=== PATIENT | male | born 1990 | race Caucasian/White ===

== ENCOUNTER 2021-09-07 13:58 | Emergency (ER) | payer OTHER, SELFPAY ==
--- NOTE | ~2021-09-07 | XR_ITS ---
EXAMINATION: XR chest 2V DATE: 09/07/2021 15:20 INDICATION: Chest pain TECHNIQUE: AP and lateral views of the chest are obtained. COMPARISON: None available FINDINGS: The lungs are free of acute opacities. Calcified pulmonary nodules are consistent with old granulomatous disease. There is no pleural effusion or pneumothorax. The cardiomediastinal silhouette is normal. The visualized bones and soft tissues are unremarkable. IMPRESSION: 1. No acute cardiopulmonary abnormality. Reviewed, dictated and finalized at location A.
[2021-09-07 14:04] VITALS: BP 136/73; PULSE 114; RESP 18; TEMP 36.4; O2SAT 99
--- NOTE | 2021-09-07 14:06 | ECG_ITS ---
Measurements Intervals [place] Rate: 104 P: 74 [place]: 145 QRS: 68 QRSD: 106 T: 52 QT: 335 QTc: 442 Interpretive Statements SINUS TACHYCARDIA POSSIBLE LEFT ATRIAL ENLARGEMENT INCOMPLETE RIGHT BUNDLE BRANCH BLOCK BORDERLINE ECG Electronically Signed On 09-07-2021 14:48:55 CDT by Ramone Alfaro D.O.
[2021-09-07 14:13] VITALS: PULSE 101
--- NOTE | 2021-09-07 14:31 | ED.CHESTPAIN ---
HPI - Chest Pain General Chief Complaint: Chest Pain Stated Complaint: chest pain Time Seen by Provider: 09/07/21 14:01 Source: patient History of Present Illness HPI narrative: Patient presents with chest pain. Patient ports he has had constant chest pain for 3 days. Says sometimes radiates to his left arm. He describes it as a achy sensation no clear modifying or alleviating factors. He occasionally has association with shortness of breath. Denies any lightheadedness or dizziness denies any nausea vomiting or diaphoresis. Denies prior similar symptoms. Denies any recent hospitalizations or surgeries denies prior DVTs. Related Data Allergies Allergy/AdvReac Type Severity Reaction Status Date / Time No Known Allergies Allergy Unverified 09/07/21 14:14 Review of Systems Review of Systems: CONSTITUTIONAL: Denies fever, chills, or sweats. EYES: Denies visual changes, redness, or discharge. ENT: Denies rhinorrhea, congestion, sore throat, or otalgia. CARDIOVASCULAR: Denies palpitations, or edema. RESPIRATORY: Denies cough. GASTROINTESTINAL: Denies abdominal pain, nausea, vomiting, or diarrhea. GENITOURINARY: Denies dysuria or hematuria. SKIN: Denies rash or itching. MUSCULOSKELETAL: Denies back pain, joint pain, or myalgia. NEUROLOGIC: Denies headache, numbness, dizziness, or weakness. PSYCHIATRIC: Denies anxiety or depression. All systems reviewed & are unremarkable except as noted in HPI and below PMFSH Past Medical History Medical History (Updated 09/07/21 @ 15:40 by Jasson Bass MD) Asthma Social History Social History (Updated 09/07/21 @ 14:32 by Jasson Bass MD) Smoking status: Current every day smoker Substance use type: marijuana Exam Narrative: GENERAL: Well-appearing, well-nourished, and in no acute distress. HEAD: Normocephalic, atraumatic. EYES: PERRLA and EOMI. ENT: Nares clear, no rhinorrhea or epistaxis. Mucous membranes moist. NECK: Supple. No masses. No JVD CHEST: Clear to auscultation. No respiratory distress. No wheezes rales or rhonchi HEART: Regular rate and rhythm. No murmur heard. Normal peripheral pulses. ABDOMEN: Soft, nontender, nondistended, normal active bowel sounds. EXTREMITIES: Normal range of motion. No edema. SKIN: Warm, dry, no rash. NEURO: No focal deficits. Alert and oriented x3. PSYCH: Normal mood and affect. Course Reevaluation(s) Reevaluation #1: Patient was sleeping comfortably heart rate was in the 80s on the monitor when I woke him up his heart rate returned to over 100. Results and plan reviewed with patient. Patient is comfortable outpatient plan. Elevated heart rate likely related to anxiety or impending incarceration. Date: 09/07/21 Time: 15:38 Vital Signs Vital signs: Vital Signs Temperature 36.4 C L 09/07/21 14:04 Pulse Rate 114 H 09/07/21 14:04 Respiratory Rate 18 09/07/21 14:04 Blood Pressure 136/73 09/07/21 14:04 Pulse Oximetry 99 09/07/21 14:04 Temperature 36.4 C L 09/07/21 14:04 Pulse Rate 102 H 09/07/21 16:33 Respiratory Rate 21 H 09/07/21 16:33 Blood Pressure 148/85 H 09/07/21 16:33 Pulse Oximetry 99 09/07/21 16:33 MDM - Chest Pain MDM Narrative Medical decision making narrative: H&P as above, vs with intermittent tachycardia, pt looks clinically well, exam reassuring, labs reassuring with negative troponin after 3 days of constant symptoms as well as a negative dimer, img without acute process, additional labs/img considered, symptomatic relief available as needed, on reevaluation pt continues to looks clinically well. Symptoms remain of unclear etiology, dns PE, dissection, pneumothorax, ACS. plan to tx/monitor as op w/ pcm f/u findings/plan discussed with pt, pt agree/comfortable with plan, return precautions given Lab Data Result diagrams: 09/07/21 14:37 09/07/21 14:37 Labs: Lab Results 09/07/21 09/07/21 09/07/21 Range/Units 14:37 14:37 14:37 WBC 6.8
[2021-09-07 14:32] VITALS: BP 129/90; PULSE 114; RESP 18; O2SAT 100
[2021-09-07 14:44] LABS: Basophils Percent Auto 0.6 % (0.2-1.2); Eosinophils Absolute Auto 0.1 K/mm3 (0-0.3); Eosinophils Percent Auto 1.8 % (0-4.4); Hematocrit 43.6 % (42.0-52.0); Hemoglobin 14.9 g/dL (14.0-18.0); Immature Granulocyte Absolute 0.02 K/mm3 (0.00-0.031); Immature Granulocyte Percent A 0.3 % (0-0.5); Lymphocytes Absolute Auto 2.21 K/mm3 (0.9-3.2); Lymphocytes Percent Auto 32.7 % (18.3-44.2); Mean Corpuscular HGB Conc 34.2 g/dl (32-36); Mean Corpuscular Hemoglobin 29.4 pg (26-34); Mean Corpuscular Volume 86.2 fl (80-100); Mean Platelet Volume 9.6 fl (7.4-10.4); Monocytes Absolute Auto 0.5 K/mm3 (0.1-0.6); Monocytes Percent Auto 7.4 % (2.6-8.5); Neutrophils Absolute Auto 3.9 K/mm3 (1.3-6.7); Neutrophils Percent Auto 57.2 % (45.5-73.1); Platelet Count Result 249 k/mm3 (150-375); Red Blood Count 5.06 M/mm3 (4.6-6.20); Red Cell Distribution Width 12.6 % (11.5-14.5); White Blood Count 6.8 K/mm3 (4.5-10.0)
[2021-09-07 14:55] LABS: Alanine Aminotransferase 14 U/L (6-50); Albumin Level 4.1 g/dL (3.5-5.1); Alkaline Phosphatase 68 U/L (38-126); Anion Gap 6 mmol/L (8-16); Aspartate Amino Transferase 19 U/L (17-59); Bilirubin,Total 0.4 mg/dL (0.2-1.3); Blood Urea Nitrogen 15 mg/dL (9-20); Calcium 8.5 mg/dL (8.4-10.2); Carbon Dioxide 27 mmol/L (22-30); Chloride 106 mmol/L (98-107); Estimated CRCL calculation 108 ml/min; Estimated Glomerular Filt Rate > 60; Glucose 110 mg/dL (65-110); Lipase 68 U/L (23-300); Sodium 139 mmol/L (137-145)
[2021-09-07 15:06] LABS: Troponin I < 0.012 ng/mL (0.000-0.034)
[2021-09-07 15:26] LABS: Partial Thromboplastin Time 28.1 SECONDS (22.3-36.8)
[2021-09-07 15:28] LABS: Prothrombin Time 13.1 Seconds (11.1-14.7)
[2021-09-07 15:31] LABS: D Dimer 0.34 ug/mL (<0.48)
--- NOTE | 2021-09-07 16:25 | PC.NURSE ---
Pt sleeping when this RN enters room to give medication. When awoke, pt grabs chest and moans
[2021-09-07] MEDS: KETOROLAC 30 MG/ML VIAL (*BKC) IM (16:32)
[2021-09-07 16:33] VITALS: BP 148/85; PULSE 102; RESP 21; O2SAT 99
== END 2021-09-07 16:35 ==
PROVIDERS: Emergency Provider Emergency Medicine
DX: R07.9 Chest pain, unspecified (principal); J45.909 Unspecified asthma, uncomplicated; F17.200 Nicotine dependence, unspecified, uncomplicated; R00.0 Tachycardia, unspecified; I45.10 Unspecified right bundle-branch block; R94.31 Abnormal electrocardiogram [ECG] [EKG]
CPT/HCPCS: 36415; 71046; 80053; 83690; 84484; 85025; 85380; 85610; 85730; 93005; 96372; 99284; J1885